=== PATIENT | male | born 2005 | race African-American/Black ===

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

== ENCOUNTER 2023-07-05 00:17 | Emergency (ER) | payer OTHER, SELFPAY ==
[2023-07-05 00:22] VITALS: BP 134/78; PULSE 78; RESP 18; TEMP 36.8; O2SAT 100
[2023-07-05 02:15] LABS: Strep Group A RT-PCR NOT DETECTED (Negative)
--- NOTE | 2023-07-05 02:21 | ED.GENADULT ---
HPI - General Adult General Chief complaint: Unspecified Stated complaint: sore throat Time Seen by Provider: 07/05/23 02:21 History of Present Illness HPI narrative: Patient is a 17-year-old male stepped department this morning complaining sore throat day. Patient denies any fevers or chills at home, denies any sick contacts or exposure to COVID/influenza. He is currently denying any cough or URI symptoms and denies any shortness of breath. Patient admits to mild pain with swallow otherwise no additional symptoms. There are no other modifying, alleviating, or precipitating factors at this time. Related Data Home Medications Medication Instructions Recorded Confirmed No Home Medications 07/12/21 10/23/21 Allergies Allergy/AdvReac Type Severity Reaction Status Date / Time No Known Allergies Allergy Verified 07/05/23 01:52 Review of Systems Review of Systems: All systems are reviewed and are negative unless stated otherwise in the HPI. [facility] Past Medical History Medical History Vertigo Family History Family History Mother Multiple sclerosis Osteoporosis Other Arthritis Neuropathy Social History Social History Smoking status: Never smoker Alcohol intake: never Substance use: never Living arrangements: with family Occupation/Education: student Gender identity (if verbalized by the patient): Male Exam Narrative: General: Alert, awake, afebrile, in no acute distress. HEENT: PERRL, no rhinorrhea, no post nasal drip, mild pharyngeal erythema, no tonsillar exudates or swelling. Neck: Trachea midline, no JVD, no lymphadenopathy. Cardiovascular: Regular rate and rhythm, no murmurs, rubs or gallops, no peripheral edema. Respiratory: Clear to auscultation bilaterally, no tachypnea, no wheezing, no rhonchi, no rubs, no respiratory distress. Abdomen: Soft, nontender, nondistended, no rebound, no guarding, no peritoneal signs. Musculoskeletal: No joint swelling or deformity, normal muscle tone. Skin: No rashes or petechia, no signs of infection. Psychiatric: Alert and oriented, normal behavior and judgment for situation. Neurological: Alert and oriented to person, place, and time. Follows all commands. No focal deficits, speech is clear and fluent. Course Vital Signs Vital signs: Vital Signs Temperature 98.2 F 07/05/23 00:22 Pulse Rate 78 07/05/23 00:22 Respiratory Rate 18 07/05/23 00:22 Blood Pressure 134/78 07/05/23 00:22 Pulse Oximetry 100 07/05/23 00:22 Oxygen Delivery Room Air 07/05/23 00:22 Temperature 98.2 F 07/05/23 00:22 Pulse Rate 76 07/05/23 02:54 Respiratory Rate 17 07/05/23 02:54 Blood Pressure 128/69 07/05/23 02:54 Pulse Oximetry 100 07/05/23 02:54 Oxygen Delivery Room Air 07/05/23 00:22 Medical Decision Making MDM Narrative Medical decision making narrative: The patient was evaluated by myself in the emergency department. History is obtained from patient who is an independent historian and physical exam was performed. External medical records were reviewed at this time. Patient was administered 10 mg of oral Decadron. Strep swabs were obtained noted to be negative. Differential diagnosis considerations include strep throat, viral pharyngitis and tonsillitis. Comorbidities impacting this visit include none. I have evaluated and discussed social determinants of health with the patient that could potentially impact subsequent diagnosis and treatment plans. On repeat assessment of the patient, reevaluation revealed that the patient is doing well and is in no acute distress. Patient symptoms have improved since he arrived to our emergency department. Repeat vital signs were all reviewed and noted to be stable. Differential diagnosis and treatmen
[2023-07-05] MEDS: dexAMETHasone 10 MG/10 ML INTENSOL CONC (*BKC) PO (02:52)
[2023-07-05 02:54] VITALS: BP 128/69; PULSE 76; RESP 17; O2SAT 100
== END 2023-07-05 02:56 | disposition home or self-care (01) ==
LOC: ANHED 02:52
PROVIDERS: Emergency Provider Emergency Medicine
DX: J02.9 Acute pharyngitis, unspecified (principal)
CPT/HCPCS: 87651; 99283; J8540

== ENCOUNTER 2024-10-18 21:04 | Emergency (ER) | payer OTHER, SELFPAY ==
--- OUTSIDE RECORDS SUMMARY | 2024-10-18 21:06 | XMS_ITS | Clinical Summary ---
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 Gender Identity Not on file Sexual Orientation Not on file Plan of Treatment Health Maintenance Due Date Last Done Comments Hepatitis C Virus (HCV) Screening 2003 Human Papillomavirus (HPV) Immunization (2 - Male 3-dose series) 03/06/2019 02/06/2019 Meningococcal B Immunization (1 of 2 - Standard) 2019 Influenza Immunization (#1) 2023 01/19/2016 SARS-COV-2 Immunization ( season) 2023 Respiratory Syncytial Virus (RSV) Immunization (Adult) (1 - 1-dose 75+ series) 11/10/2078 Hepatitis B Immunization Completed 005, 2003, 2003 Pneumococcal Immunization Combined Aged Out 11/21/2004, 05/19/2004, 03/18/2004, Additional history exists No longer eligible based on patient's age to complete this topic Measles Mumps Rubella (MMR) Immunization Discontinued 11/23/2007, 11/21/2004 Polio (IPV) Immunization Discontinued 008, 03/18/2004, 01/16/2004 DTaP/Tdap/Td Immunization Discontinued 2014, 11/23/2007, 05/19/2004, Additional history exists TdaP Immunization Completed 01/04/2015 Meningococcal Immunization (ACWY) Aged Out 01/19/2016, 10/27/2013 No longer eligibl e based on patient's age to complete this topic Varicella Immunization Discontinued 01/19/2016, 2013 Rotavirus Immunization Aged Out No lo nger eligible based on patient's age to complete this topic
[2024-10-18 21:15] VITALS: BP 134/75; PULSE 61; RESP 18; TEMP 36.4; O2SAT 100
--- NOTE | 2024-10-18 21:36 | ED.EAR ---
HPI - Ear Problem General Chief complaint: Ear Stated complaint: R EAR PAIN X1WK Time Seen by Provider: 10/18/24 21:36 Focused HPI: This is a 18-year-old male that presents to the emergency department for right ear pain. Ongoing over the last week. Reports decreased hearing in the ear. Denies fevers or drainage. GENERAL: Well-appearing, well-nourished, and in no acute distress. HEAD: Normocephalic, atraumatic. CHEST: Clear to auscultation. ?No respiratory distress. HEART: Regular rate and rhythm.? ENT: Left external auditory canal and TM normal. Right external auditory canal with cerumen impaction NEURO: ?Alert and oriented x3. Patient screened in triage and initial orders placed.? ?Additional care and disposition to be based upon?diagnostic testing and treatment. Related Data Allergies Allergy/AdvReac Type Severity Reaction Status Date / Time No Known Allergies Allergy Verified 10/18/24 21:04 [facility] Past Medical History Medical History Vertigo Family History Family History Mother Multiple sclerosis Osteoporosis Other Arthritis Neuropathy Social History Social History Smoking status: Never smoker Alcohol intake: never Substance use: never Living arrangements: with family Occupation/Education: student Gender identity (if verbalized by the patient): Male Course Vital Signs Vital signs: Vital Signs Temperature 97.6 F 10/18/24 21:15 Pulse Rate 61 10/18/24 21:15 Respiratory Rate 18 10/18/24 21:15 Blood Pressure 134/75 10/18/24 21:15 Pulse Oximetry 100 10/18/24 21:15 Oxygen Delivery Room Air 10/18/24 21:15 Temperature 97.6 F 10/18/24 21:15 Pulse Rate 61 10/18/24 21:15 Respiratory Rate 18 10/18/24 21:15 Blood Pressure 134/75 10/18/24 21:15 Pulse Oximetry 100 10/18/24 21:15 Oxygen Delivery Room Air 10/18/24 21:15 Procedures Ear Wax Removal Right Ear: Ear Wax Removal Date: 10/19/24 Ear Wax Removal Time: 02:00 Results: Re-examined: cerumen removed completely TM Examination: TM(s) erythematous Ear Canal Exam: atraumatic Patient Tolerated Procedure: well and no complications Complications: no problems Technique: ear canal irrigated and ear canal curetted Medical Decision Making MDM Narrative Medical decision making narrative: Patient presents the emergency department with right ear discomfort, decreased hearing. Patient with cerumen impaction. This was successfully removed. Patient's TM is red, bulging. Will treat for otitis media. Instructed to follow up with PCP Differential Diagnosis Differential Diagnosis: Otitis media, otitis externa, cerumen impaction Vital Signs Vital Signs: Vital Signs Temperature 97.6 F 10/18/24 21:15 Pulse Rate 61 10/18/24 21:15 Respiratory Rate 18 10/18/24 21:15 Blood Pressure 134/75 10/18/24 21:15 Pulse Oximetry 100 10/18/24 21:15 Oxygen Delivery Room Air 10/18/24 21:15 Temperature 97.6 F 10/18/24 21:15 Pulse Rate 61 10/18/24 21:15 Respiratory Rate 18 10/18/24 21:15 Blood Pressure 134/75 10/18/24 21:15 Pulse Oximetry 100 10/18/24 21:15 Oxygen Delivery Room Air 10/18/24 21:15 Critical Care Time Critical Care Time Critical Care Time: No Discharge Plan Discharge Clinical Impression: Otitis media Qualifiers: Otitis media type: unspecified Chronicity: acute Qualified Code(s): H66.90 - Otitis media, unspecified, unspecified ear Cerumen impaction Qualifiers: Laterality: right Qualified Code(s): H61.21 - Impacted cerumen, right ear Patient Disposition: Home Condition: Stable Instructions: Antibiotic Form, Ear Infection (ED) Additional Instructions: Return to the emergency department for worsening symptoms, or any other concerns Take Tylenol or Motrin [id number] for pain as needed. Take oral antibiotics as prescribed Follow up with your primary care doctor Patient Language: Z[place]ian Prescriptions: New amoxicillin-pot clavulanate 875-125 mg tablet 1 tablet PO Q12H 7 Days Qty: 14 0RF Follow-up/Referrals: UNKNOWN,DOCTOR [Primary Care Provider] -
--- OUTSIDE RECORDS SUMMARY | 2024-10-19 00:32 | XMS_ITS | Clinical Summary ---
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
--- NOTE | 2024-10-19 00:37 | PC.NURSE ---
Pt presents to ED c/o ear pain, has subside. Per pt is started hurting after he went swimming last tuesday and had difficulty hearing.
--- NOTE | 2024-10-19 02:27 | PC.NURSE ---
Pt ear irrigated, per pt can hear now.
== END 2024-10-19 02:32 | disposition home or self-care (01) ==
PROVIDERS: Emergency Provider Physician Assistant
DX: H66.91 Otitis media, unspecified, right ear (principal); H61.21 Impacted cerumen, right ear
CPT/HCPCS: 69210; 99283